=== PATIENT | female | born 1960 | race Caucasian/White ===

== ENCOUNTER 2021-10-05 08:24 | Day surgery (SDC) | payer OTHER ==
[2021-10-03 09:22] VITALS: BMI 34.0
[2021-10-05 10:01] VITALS: TEMP 97.8
[2021-10-05 10:17] VITALS: BP 93/50; PULSE 70
== END 2021-10-05 10:15 | disposition home or self-care (01) ==
LOC: FASU-ENDO 08:24
PROVIDERS: ATTEND Internal Medicine Gastroenterology
PROC: 0DJD8ZZ Inspection of Lower Intestinal Tract, Via Natural or Artificial Opening Endoscopic (ICD-10-PCS; principal; 2021-10-05 09:25)
DX: Z12.11 Encounter for screening for malignant neoplasm of colon (principal); K64.1 Second degree hemorrhoids
CPT/HCPCS: 82962

== ENCOUNTER 2022-01-08 08:29 | Day surgery (SDC) | payer OTHER ==
[2022-01-07 15:14] VITALS: BMI 33.6
[2022-01-08 09:13] VITALS: RESP 16
[2022-01-08 11:43] VITALS: PULSE 74; TEMP 96.7
[2022-01-08 11:46] VITALS: BP 137/68
== END 2022-01-08 11:15 | disposition home or self-care (01) ==
LOC: FASU-ENDO 08:29
PROVIDERS: ATTEND Internal Medicine Gastroenterology
PROC: 0DBN8ZX Excision of Sigmoid Colon, Via Natural or Artificial Opening Endoscopic, Diagnostic (ICD-10-PCS; principal; 2022-01-08 09:57)
DX: Z12.11 Encounter for screening for malignant neoplasm of colon (principal); K63.5 Polyp of colon; K64.1 Second degree hemorrhoids
CPT/HCPCS: 82962; 88305-TC